=== PATIENT | female | born 1960 | race Caucasian/White ===

== ENCOUNTER → 2017-11-27 | Outpatient (CLI) | payer OTHER ==
[~2017-11-27] MED LIST: ASPIRIN81 MG PO; BENAZEPRIL HCT PO; CO Q-10 PO; ESTRADIOL TRAN1 EAC1 TD; FISH OIL QD; LIPITOR20 MG PO; MELATONIN 5 MG1 EAC1 PO; NIACIN FLUSH F1 EACH PO; OMEGA 3-6-9 CO400 MG PO; PRIMROSE PO; TRETINOIN20 G1 TP; VITAMIN E PO; Z.0.BENADRYL25 MG PO; Z.0.MULTIVITAMINS1 E; Z.0.WELCHOL625 MG PO
== END ==
LOC: MAMMO 14:11
PROVIDERS: ATTEND Family Medicine
DX: Z12.31 Encounter for screening mammogram for malignant neoplasm of breast (principal)
CPT/HCPCS: 77067

== ENCOUNTER → 2018-08-30 | Outpatient (CLI) | payer OTHER ==
[~2018-08-30] MED LIST changes: +ALLEGRA-D 12 H1 EACH PO; +BLACK COHOSH160 MG PO; +DIATRIZOATE MEGL/DIATRIZOA SOD 30 ML BTL PO ONE; +DICYCLOMINE HCL20 MG PO; +IOPAMIDOL 370 MG/ML 200 ML INFUS..BTL INJ ONE; +OMEPRAZOLE40 MG PO; +PRISTIQ ER50 MG PO; +PROBIOTIC & AC1 EACH PO; +SODIUM CHLORIDE 0.9% 50ML 50 ML ONE
--- NOTE | 2018-08-30 10:54 | Diagnostic Imaging Report ---
EXAM: CT Abdomen and Pelvis with contrast INDICATION: Lower abdominal pain. History of diverticulitis, diarrhea, colonic polyps. COMPARISON: None. TECHNIQUE: Abdomen and pelvis were scanned utilizing a multidetector helical scanner from the lung base to the pubic symphysis after administration of IV contrast. Coronal and sagittal reformations were obtained. Routine protocol was performed. Scan was performed when during portal venous phase. IV CONTRAST: 100 cc of Isovue 370 ORAL CONTRAST: Water COMPLICATIONS: None RADIATION DOSE: Total DLP: 512.1 mGy*cm Dose modulation, iterative reconstruction, and/or weight based adjustment of the mA/kV was utilized to reduce the radiation dose to as low as reasonably achievable. FINDINGS: LINES and TUBES: None. LOWER THORAX: Minimal dependent atelectasis HEPATOBILIARY: Bilateral hepatic cysts. No evidence of solid mass. No biliary ductal dilation. GALLBLADDER: Status post cholecystectomy. SPLEEN: No splenomegaly. PANCREAS: No focal masses or ductal dilatation. ADRENALS: No adrenal nodules KIDNEYS/URETERS: Kidneys enhance symmetrically. No evidence of hydronephrosis, solid mass, or stone. GI TRACT: No evidence of wall thickening or distension. Appendix is not clearly identified. There is however no fat stranding or adenopathy in the right lower quadrant to suggest appendicitis. There is scattered sigmoid colonic diverticulosis without CT evidence of diverticulitis. PELVIC ORGANS/BLADDER: Heterogeneous attenuation of the uterus. LYMPH NODES: No lymphadenopathy. VESSELS: There are scattered atherosclerotic calcifications in the aorta and branch vessels. PERITONEUM / RETROPERITONEUM: No free air or fluid. BONES AND SOFT TISSUES: No acute osseous abnormality. No suspicious lytic or blastic lesions. Mild degenerative changes of the visualized spine. CONCLUSION: No acute CT findings in the abdomen or pelvis. Sigmoid diverticulosis without CT evidence of diverticulitis. Status post cholecystectomy. Signed by: Dr. Monie Malave MD on 08/30/2018 10:51 AM
== END ==
LOC: CT 08:16
PROVIDERS: ATTEND Internal Medicine Gastroenterology
DX: R10.30 Lower abdominal pain, unspecified (principal)
CPT/HCPCS: 74177; Q9967

== ENCOUNTER → 2018-10-23 | Day surgery (SDC) | payer OTHER ==
[2018-08-30 09:03] LABS: BLOOD UREA NITROGEN 12 mg/dL (7-26); BUN/CREATININE RATIO 16 (6-25); CREATININE, SERUM 0.74 mg/dL (0.57-1.11); EST GLOMERULAR FILTRATION RATE > 60 ML/MIN (60-)
[~2018-10-23] MED LIST changes: -DIATRIZOATE MEGL/DIATRIZOA SOD 30 ML BTL PO ONE; +HYOSCYAMINE 0.125 MG TAB ONE; -IOPAMIDOL 370 MG/ML 200 ML INFUS..BTL INJ ONE; +LIDOCAINE HCL 2% LOCAL INJ 5 ML SDV VIAL INJ ONE; +MIDAZOLAM HCL 2 MG/2 ML VIAL ONE; +PROPOFOL IV EMULSION 10 MG/ML 20 ML VIAL ONE; +PROPOFOL IV EMULSION 10 MG/ML 50 ML VIAL ONE; -SODIUM CHLORIDE 0.9% 50ML 50 ML ONE
[2018-10-23 10:10] VITALS: BP 154/89
--- OUTSIDE RECORDS SUMMARY | 2018-10-23 11:15 | XMS REPORT ---
Author Author [facility] Address Unknown Phone Unavailable Care Team Providers Care Sports Marketing Specialist Name Role Phone ELENA PRECIADO Unavailable Unavailable NIKKI CAMARGO Unavailable Unavailable Problems This patient has no known problems. Allergies, Adverse Reactions, Alerts This patient has no known allergies or adverse reactions. Medications This patient has no known medications. Results Test Description Test Time Test Comments Text Results Atomic Results Result Comments CT ABDOMEN/PELVIS W 2018-08-30 10:43:00 [facility] [address] [address] Patient Name: RICHARD RUIZ MR #: [id number] : 1960 Age/Sex: 58/F Req #: [id number] Adm Physician: Ordered by: ELENA PRECIADO MD Report #: [id number] Location: CT Room/Bed: Procedure: [id number] CT/CT ABDOMEN/PELVIS W Exam Date: 08/30/18 Exam Time: 1000 REPORT STATUS: Signed EXAM: CT Abdomen and Pelvis with contrast INDIC ATION: Lower abdominal pain. History of diverticulitis, diarrhea, colonic polyps. COMPARISON: None. TECHNIQUE: Abdomen and pelvis were scanned utilizing a multidetector helical scanner from the lung base to the pubic symphysis after administration of IV contrast. Coronal and sagittal reformations were obtained. Routine protocol was performed. Scan was performed when during portal venous phase. IV CONTRAST: 100 cc of Isovue 370 ORAL CONTRAST: Water COMPLICATIONS: None RADIATION DOSE: Total DLP: 512.1 mGy*cm Dose modulation, iterative reconstruction, and/or weight based adjustment of the mA/kV was utilized to reduce the radiation dose to as low as reasonably achievable. FINDINGS: LINES and TUBES: None. LOWER THORAX: Minimal dependent atelectasis HEPATOBILIARY: Bilateral hepatic cysts. No evidence of solid mass. No biliary ductal dilation. GALLBLADDER: Status post cholecystectomy. SPLEEN: No splenomegaly. PANCREAS: No focal masses or ductal dilatation. ADRENALS: No adrenal nodules KIDNEYS/URETERS: Kidneys enhance symmetrically. No evidence of hydronephrosis, solid mass, or stone. GI TRACT: No evidence of wall thickening or distension. Appendix is not clearly identified. There is however no fat stranding or adenopathy in the right lower quadrant to suggest appendicitis. There is scattered sigmoid colonic diverticulosis without CT evidence of diverticulitis. PELVIC ORGANS/BLADDER: Heterogeneous attenuation of the uterus. LYMPH NODES: No lymphadenopathy. VESSELS: There are scattered atherosclerotic calcifications in the aorta and branch vessels. PERITONEUM / RETROPERITONEUM: No free air or fluid. BONES AND SOFT TISSUES: No acute osseous abnormality. No suspicious lytic or blastic lesions. Mild degenerative changes of the visualized spine. CONCLUSION: No acute CT findings in the abdomen or pelvis. Sigmoid diverticulosis without CT evidence of diverticulitis. Status post cholecystectomy. Signed by: Dr. Maria Guadalupe Kidd MD on 08/30/2018 10:51 AM Dictated By: MARIA GUADALUPE KIDD MD 1051 Transcribed By: CARMELA on 08/30/18 1051 COPY TO: ELENA PRECIADO MD MAMMOGRAPHY DIGITAL SCR BILAT 2017-11-27 14:50:00 [address] [address] Patient Name: RICHARD RUIZ MR #: [id number] : 1960 Age/Sex: 57/F Req #: [id number] Adm Physician: Ordered by: CAMARGO ANDREW DO Report #: [id number] [facility] Room[facility]Bed: Procedure: [id number] MG/MAMMOGRAPHY DIGITAL SCR BILAT Exam Date: 11/27/17 Exam Time: 1426 REPORT STATUS: Signed #[id number] - MGSCRBIL #BILATERAL DIGITAL SCREENING MAMMOGRAM WITH CAD: 11/27/2017 CLINICAL: Routine screening. Comparison is made to exams dated: 11/28/2016 mammogram and 11/28/2014 mammogram - [facility]. The tissue of both breasts is heterogeneously dense. This may lower the sensitivity of mammography. Current study was also evaluated with a Computer Aided Detection (CAD) system. No new significant masses, calcifications, or other findings are seen in either breast. There are benign calcifications in both breasts. There is a mole marker on the left breast. IMPRESSION: BENIGN There is no mammographic evidence of malignancy. A 1 year screening mammogram is recommended. The patient will be notified by letter of the results. Anatoly Stokes M.D. ks/:12/01/2017 10:43:33 Government Property Inspector: Kayla SAUCEDO)(Betty), [facility] letter sent: Normal Exam Mammogram BI-RADS: 2 Benign Dictated By: ANATOLY STOKES MD 1043 Transcribed By: ETHAN on 12/01/17 1043 COPY TO: NIKKI CAMARGO DO MAMMOGRAPHY DIGITAL SCR BILAT [place] [address] Patient Name: RICHARD RUIZ MR #: [id number] : 1960 Age/Sex: 56/F Req #: [id number] Adm Physician: Ordered by: CAMARGO ANDREW DO Report #: [id number] Location: MAMMO Room/Bed: Procedure: [id number] MG/MAMMOGRAPHY DIGITAL SCR BILAT Exam Date: 11/28/16 Exam Time: 1250 REPORT STATUS: Signed #[id number] - MGSCRBIL #BILATERAL DIGITAL SCREENING MAMMOGRAM WITH CAD: 11/28/2016 CLINICAL: Routine screening. Comparison is made to exams dated: 11/28/2014 mammogram, 11/02/2013 mammogram and 08/18/2012 mammogram - [facility]. Current study contains 4 films. The tissue of both breasts is heterogeneously dense. This may lower the sensitivity of mammography. Current study was also evaluated with a Computer Aided Detection (CAD) system. There are benign calcifications in both breasts. There is a mole marker on the left breast. No significant masses, calcifications, or other findings are seen in either breast. There has been no significant interval change. IMPRESSION: BENIGN There is no mammographic evidence of malignancy. A 1 year screening mammogram is recommended. The patient will be notified by letter of the results. Lynn viramontes/ethan:12/03/2016 12:36:23 Government Property Inspector: Kayla EMERSON(Radha)(M), [facility] letter sent: Compared to Prior B9 Mammogram BI-RADS: 2 Benign Dictated By: LYNN CUMMINGS DO 1236 Transcribed By: ETHAN on 12/03/16 1236 COPY TO: NIKKI CAMARGO DO
[2018-10-23 11:59] LABS: WBC,FECAL (FECAL LACTOFERRIN) NEGATIVE (NEGATIVE)
[2018-10-23 12:58] LABS: C DIFFICILE TOXIN A&B AMP PROB NEGATIVE (NEGATIVE)
--- NOTE | 2018-10-23 13:49 | Operative Report ---
DATE OF PROCEDURE: 10/23/2018 SURGEON: Juan Yee MD PROCEDURES: EGD with biopsies and colonoscopy with polypectomy and biopsies. INDICATIONS FOR EGD: Dyspepsia. INDICATIONS FOR COLONOSCOPY: Surveillance colonoscopy, personal history of colon polyps, sister with colon cancer, and diarrhea. MEDICATIONS: The patient was done under MAC, please see anesthesiologist's note. PROCEDURE IN DETAIL: With the patient in left lateral decubitus position, a flexible fiberoptic Olympus gastroscope was introduced into the esophagus under direct visualization without any difficulty. There was some patchy erythema noted in distal esophagus. A minute nodule was biopsied from the distal esophagus. The scope was then advanced with ease into the stomach. Mucosa overlying the antrum and the body revealed some patchy erythema and low-grade to moderate edema and biopsies were obtained and sent to stain for H. pylori. The pylorus was of normal contour and shape, it was intubated with ease and the scope was advanced all the way to the second portion of the duodenum. Biopsies were obtained from the second portion and duodenal bulb to rule out sprue. The scope was then withdrawn back into the stomach and retroflexed mucosa overlying the fundus and cardia appeared to be within normal limits. The scope was then straightened out, it was subsequently withdrawn, and the patient tolerated the procedure well. IMPRESSION: 1. Distal esophagitis, mild. 2. Minute nodule distal esophagus, biopsied. 3. Gastritis, biopsied, biopsies sent to stain for Helicobacter pylori. 4. Rule out sprue. PLAN: Follow up histology. Continue Protonix 40 mg one p.o. q.a.m. before meals. Add Carafate 2 g p.o. before meals b.i.d. The patient was then turned around and after adequate lubrication of the anal canal, a flexible fiberoptic Olympus colonoscope was inserted into the rectum with ease and advanced all the way to the cecum. Mucosa overlying the cecum appeared to be within normal limits. The ileocecal valve was intubated and the scope was advanced into the terminal ileum. Biopsies were obtained. The scope was then withdrawn back into the colon. It was then withdrawn slowly and one polyp was removed per cold snare polypectomy from the proximal ascending colon. The rest of the ascending and transverse grossly appeared to be within normal limits. Some mild patchy inflammatory changes were noted in the left colon and the rectum. Random biopsies were obtained. Diverticular disease was also noted, which was more prominent in the descending and the sigmoid colon. The scope was then retroflexed into the distal rectum and small internal hemorrhoids were noted, none of which was actively bleeding. The scope was then straightened out, it was subsequently withdrawn after securing an adequate stool specimen that was sent for the appropriate stool studies. The patient tolerated the procedure well. IMPRESSION: 1. Ascending colon polyp snared. 2. Mild patchy left-sided colitis. 3. Diverticulosis. 4. Proctitis, mild. 5. Small internal hemorrhoids, none actively bleeding. PLAN: Follow up histology. Follow up stool studies. Initiate Bentyl 20 mg one p.o. q.i.d. and Visbiome one p.o. b.i.d. The patient might benefit from a followup colonoscopy in 3 to 5 years. MD EDGAR Mackenzie/ANIRUDH /[id number] cc: Ioana Gray MD
== END | disposition home or self-care (01) ==
LOC: OR 06:15
PROVIDERS: ATTEND Internal Medicine Gastroenterology
DX: Z12.11 Encounter for screening for malignant neoplasm of colon (principal); D12.2 Benign neoplasm of ascending colon; K57.30 Diverticulosis of large intestine without perforation or abscess without bleeding; K20.9 Esophagitis, unspecified; K29.50 Unspecified chronic gastritis without bleeding; K63.5 Polyp of colon; K51.50 Left sided colitis without complications; K62.89 Other specified diseases of anus and rectum; K64.8 Other hemorrhoids; R19.7 Diarrhea, unspecified; R11.0 Nausea; K92.1 Melena; Z80.0 Family history of malignant neoplasm of digestive organs; Z86.010 Personal history of colon polyps; Z01.810 Encounter for preprocedural cardiovascular examination; Z88.0 Allergy status to penicillin
CPT/HCPCS: 36415; 43239; 45385; 82565; 83630; 83993; 84520; 87045; 87177; 87328; 87493; 93005; J2001; J2250; J2704 ×2; 45378; 45380; 45384

== ENCOUNTER → 2019-01-21 | Outpatient (CLI) | payer OTHER ==
[~2019-01-21] MED LIST changes: -HYOSCYAMINE 0.125 MG TAB ONE; -LIDOCAINE HCL 2% LOCAL INJ 5 ML SDV VIAL INJ ONE; -MIDAZOLAM HCL 2 MG/2 ML VIAL ONE; -PROPOFOL IV EMULSION 10 MG/ML 20 ML VIAL ONE; -PROPOFOL IV EMULSION 10 MG/ML 50 ML VIAL ONE
== END ==
LOC: MAMMO 12:56
PROVIDERS: ATTEND Family Medicine
DX: Z12.31 Encounter for screening mammogram for malignant neoplasm of breast (principal)
CPT/HCPCS: 77067

== ENCOUNTER → 2020-01-30 | Outpatient (CLI) | payer OTHER | LOC: MAMMO 12:31 | PROVIDERS: ATTEND Family Medicine | DX: Z12.31 Encounter for screening mammogram for malignant neoplasm of breast (principal) | CPT/HCPCS: 77067 ==

== ENCOUNTER 2020-08-26 20:56 | Emergency (ER) | payer BC, OTHER ==
[~2020-08-26] VITALS: Ht 154.9 cm; Wt 58.5 kg
[2020-08-26] MEDS ORDERED: PHENAZOPYRIDINE HCL 100 MG TAB PO STA (21:48)
[2020-08-26 22:25] LABS: CLARITY,URINE CLOUDY (CLEAR); COLOR,URINE RED (YELLOW)
[2020-08-26 22:39] LABS: KETONES,URINE NEGATIVE (NEGATIVE); LEUKOCYTE ESTERASE ,URINE TRACE (NEGATIVE); NITRITE,URINE NEGATIVE (NEGATIVE); PROTEIN,URINE DIPSTICK >=300 (NEGATIVE); URINE UROBILINOGEN 0.2 mg/dL (0.2 - 1)
[2020-08-26 22:40] LABS: BACTERIA,URINE MODERATE /HPF; EPITHELIAL CELLS,URINE FEW /LPF; RBC,URINE >50 /HPF (0-5)
[2020-08-27] MEDS ORDERED: PYRIDIUM200 MG PO (00:02)
[2020-08-27] MEDS ORDERED: CIPRO500 MG PO (00:02)
[2020-08-27 00:24] VITALS: BP 136/84
== END 2020-08-27 00:31 | disposition home or self-care (01) ==
LOC: ER 21:15
DX: N30.91 Cystitis, unspecified with hematuria (principal); R10.30 Lower abdominal pain, unspecified; K57.90 Diverticulosis of intestine, part unspecified, without perforation or abscess without bleeding
CPT/HCPCS: 74176; 81001; 99282

== ENCOUNTER → 2021-08-26 | Outpatient (CLI) | payer BC ==
[~2021-08-26] MED LIST changes: +CIPRO500 MG PO; +PYRIDIUM200 MG PO
== END ==
LOC: MAMMO 07:59
PROVIDERS: ATTEND Obstetrics & Gynecology
DX: Z12.31 Encounter for screening mammogram for malignant neoplasm of breast (principal); Z13.820 Encounter for screening for osteoporosis
CPT/HCPCS: 77067; 77080

== ENCOUNTER → 2022-06-11 | Day surgery (SDC) | payer BC ==
[~2022-06-11] MED LIST changes: +FENTANYL CITRATE/PF 100MCG/2 ML INJ ONE; +GLUCOSAMINE H1500 MG PO; +HYOSCYAMINE SULFATE 0.5 MG/ML INJ ONE; +LACTATED RINGER'S 1,000 ML ONE; +LIDOCAINE HCL 2% LOCAL INJ 5 ML SDV VIAL INJ ONE; +LOSARTAN-HCTZ1 EAC2 PO; +METOCLOPRAMIDE HCL 10 MG/2ML VIAL ONE; +PROPOFOL IV EMULSION 10 MG/ML 20 ML VIAL ONE; +VITAMIN D310 MCG PO; -Z.0.MULTIVITAMINS1 E; +Z.0.MULTIVITAMINS1 E PO; +[UNRECOGNIZED DRUG - OTHER] PO
[2022-06-11 09:05] VITALS: BP 118/64
== END | disposition home or self-care (01) ==
LOC: OR 08:14
PROVIDERS: ATTEND Internal Medicine Gastroenterology
DX: Z12.11 Encounter for screening for malignant neoplasm of colon (principal); Z86.010 Personal history of colon polyps; K57.30 Diverticulosis of large intestine without perforation or abscess without bleeding; K64.8 Other hemorrhoids; K21.9 Gastro-esophageal reflux disease without esophagitis; I10 Essential (primary) hypertension; E78.5 Hyperlipidemia, unspecified; Z88.0 Allergy status to penicillin; Z01.810 Encounter for preprocedural cardiovascular examination; Z79.899 Other long term (current) drug therapy; Z80.0 Family history of malignant neoplasm of digestive organs
CPT/HCPCS: 45378; 93005; J1980; J2001; J2704; J2765; J3010; J7121

== ENCOUNTER → 2022-09-04 | Outpatient (CLI) | payer BC ==
[~2022-09-04] MED LIST changes: -FENTANYL CITRATE/PF 100MCG/2 ML INJ ONE; -HYOSCYAMINE SULFATE 0.5 MG/ML INJ ONE; -LACTATED RINGER'S 1,000 ML ONE; -LIDOCAINE HCL 2% LOCAL INJ 5 ML SDV VIAL INJ ONE; -METOCLOPRAMIDE HCL 10 MG/2ML VIAL ONE; -PROPOFOL IV EMULSION 10 MG/ML 20 ML VIAL ONE
== END ==
LOC: MAMMO 08:36
PROVIDERS: ATTEND Obstetrics & Gynecology
DX: Z12.31 Encounter for screening mammogram for malignant neoplasm of breast (principal)
CPT/HCPCS: 77067

== ENCOUNTER → 2024-09-06 | Outpatient (REF) | payer BC | LOC: MAMMO 07:42 | PROVIDERS: ATTEND Obstetrics & Gynecology | DX: Z12.31 Encounter for screening mammogram for malignant neoplasm of breast (principal); Z13.820 Encounter for screening for osteoporosis | CPT/HCPCS: 77067; 77080 ==